=== PATIENT | female | born 1985 | race Caucasian/White ===

== ENCOUNTER 2023-07-09 13:40 | Emergency (ER) | payer BC ==
[~2023-07-09] VITALS: Ht 170.2 cm; Wt 63.5 kg
[2023-07-09] MEDS ORDERED: IBUP-1955 PO (14:21)
[2023-07-09 14:25] VITALS: BP 122/70; TEMP 98; O2SAT 99
== END 2023-07-09 14:25 | disposition home or self-care (01) ==
LOC: ER 13:40
DX: M54.2 Cervicalgia (principal); Y09 Assault by unspecified means; Y93.89 Activity, other specified; Y92.89 Other specified places as the place of occurrence of the external cause; Y99.8 Other external cause status
CPT/HCPCS: A4606; A4663